=== PATIENT | female | born 1965 | race Two or more races ===

== ENCOUNTER 2025-09-30 11:18 | Emergency (ER) | payer MEDICAID, SELFPAY ==
[2025-09-30 12:08] VITALS: BP 155/88; PULSE 63; RESP 19; TEMP 36.7; O2SAT 99; BMI 24.0
--- NOTE | 2025-09-30 12:14 | PD.EDRME ---
Rapid Medical Screening Exam E Arrival date/time: 09/30/25 11:18 This is a 60-year-old female that comes into the emergency room with complaints of right flank pain that started yesterday. Patient states she has had this pain before in the past. Patient was told she had kidney stones in the past as well but has never had this bout of pain. Patient denies any nausea vomiting I have greeted and performed a focused initial assessment of this patient. Initial appropriate labs ordered at this time. A comprehensive ED assessment and evaluation of the patient and analysis of all test and completion of medical decision making process will be conducted by additional ED provider. Chief Complaint: Back Pain/Injury Time Seen by Provider: 09/30/25 11:24 Vital signs: Vital Signs Temperature 98.0 F 09/30/25 12:08 Pulse Rate 63 09/30/25 12:08 Respiratory Rate 19 09/30/25 12:08 Blood Pressure 155/88 H 09/30/25 12:08 Pulse Oximetry (%) 99 09/30/25 12:08 Oxygen Delivery Method Room Air 09/30/25 12:08 Exam: Alert and oriented, breathing even and unlabored, skin warm and dry Clinical Impression: Right flank pain
[2025-09-30 12:40] LABS: Collection Type, Urine Voided
[2025-09-30 12:47] LABS: HCG Qualitative,Urine Negative
[2025-09-30 12:49] LABS: Bacteria,Urine Rare; Bilirubin,Urine Negative (Negative); Blood,Urine 2+ (Negative); Clarity,Urine Clear (Clear/Hazy); Color,Urine Lt-Yellow (Lt Yel-Yel); Culture Indicated,Urine Not Indicated; Glucose, Urine Trace (Negative); Ketones,Urine Negative (Negative); Leukocyte Esterase,Urine Positive (Negative); Nitrite,Urine Negative (Negative); PH,Urine 6.5 (5.0-7.0); Protein,Urine Negative (Neg - Trace); RBC,Urine 14 /hpf (0-3); Specific Gravity,Urine 1.021 (1.001-1.035); Squamous Epithelial Cell,Urine 1 /hpf (0-5); Urobilinogen,Urine Negative mg/dL (0.0-1.0); WBC,Urine 2 /hpf (0-5)
[2025-09-30 12:57] LABS: Basophils # (Auto) 0.0 Thou/mm3 (0.0-0.2); Basophils % (Auto) 0 % (0-2.5); Eosinophils # (Auto) 0.0 Thou/mm3 (0.0-0.5); Eosinophils % (Auto) 0 % (0-10); Hematocrit 40.2 % (36.0-46.0); Hemoglobin 13.9 g/dL (12.0-16.0); Immature Granulocytes Auto 0.02 Thou/mm3 (0.00-0.00); Lymphocytes # (Auto) 2.2 Thou/mm3 (1.0-4.8); Lymphocytes % (Auto) 28 % (10-50); Mean Corpuscular HGB Conc 34.6 g/dl (31.0-37.0); Mean Corpuscular Hemoglobin 32.8 pg (25.0-35.0); Mean Corpuscular Volume 95 fL (80-100); Monocytes # (Auto) 0.4 Thou/mm3 (0.0-0.8); Monocytes % (Auto) 5 % (0-12); Neutrophils # (Auto) 5.2 Thou/mm3 (1.8-7.7); Neutrophils % (Auto) 66 % (37-80); Nucleated Red Blood Cell # 0.00 Thou/mm3 (0.00-0.00); Nucleated Red Blood Cell % 0 /100 WBC (0); Platelet Count 243 Thou/mm3 (140-440); RDW Standard Deviation 44.7 fL (36.4-46.3); Red Blood Count 4.24 Miln/mm3 (4.00-5.20); White Blood Count 7.8 Thou/mm3 (3.6-11.0)
[2025-09-30 13:15] LABS: Alanine Aminotransferase 12 U/L (10-49); Albumin, Serum 4.8 gm/dL (3.4-4.8); Albumin/Globulin Ratio 1.7 (1.2-2.2); Alkaline Phosphatase 70 U/L (46-116); Anion Gap 10 (7-16); Aspartate Amino Transferase 22 U/L (0-34); BUN/Creatinine Ratio 13 Ratio (12-20); Bilirubin,Total 0.6 mg/dL (0.3-1.2); Blood Urea Nitrogen 10 mg/dL (9-23); Calcium 9.5 mg/dL (8.3-10.6); Calcium (Corrected) 9.5 mg/dL (8.5-10.1); Carbon Dioxide 27.6 mMol/L (20.0-31.0); Chloride 104 mMol/L (98-107); Creatinine (Component) 0.8 mg/dL (0.6-1.3); Estimated Creatinine Clearance 59.5 mL/min (>60); Globulin 2.9 gm/dL (2.3-3.5); Glucose 116 mg/dL (74-106); Lipase 29 U/L (12-53); Osmolality,Calculated 283 (275-295); Potassium 4.0 mMol/L (3.4-5.1); Sodium 142 mMol/L (136-145); Total Protein 7.7 gm/dL (5.7-8.2); eGFR > 60 See Note
--- NOTE | 2025-09-30 13:16 | XR_ITS ---
Examination: CT abdomen and pelvis without contrast. Coronal 3-D reconstructions. Sagittal 2-D reconstructions. Date and time of exam: September 30, 2025, 1338 hours, comparison August 21, 2020 INDICATIONS: Right-sided flank pain with painful urination 3 days CTDI: vol (mGy): 6.16 DLP: (mGycm): 274 Technique: Axial images of the abdomen have been obtained, 3 mm slice thickness Intravenous contrast material has not been administered. Low dose protocols were performed. One or more of the following dose reduction techniques were used; automated exposure control, adjustment of the mA and/or KV according to patient size, use of iterative reconstruction technique. Findings: No visualized liver or splenic lesion Absent gallbladder No pancreatic or adrenal mass 4 mm left renal calculus No hydronephrosis or ureteral calculi Aortic calcification no aneurysmal dilatation 15 mm fat-containing umbilical hernia Normal appendix No bowel obstruction Atrophic anteverted uterus No bladder mass or bladder calculi Moderate osteopenia IMPRESSION: 4 mm nonobstructing left renal calculus, no hydronephrosis or ureteral calculi Normal appendix Small fat-containing umbilical hernia No bladder mass or bladder calculi
--- NOTE | 2025-09-30 17:33 | PD.EDBACK ---
ED Back Injury Pain RME/HPI General Chief Complaint: Back Pain/Injury Stated Complaint: LOWER BACK PAIN X 3 DAYS Time Seen by Provider: 09/30/25 11:24 Arrival date/time: 09/30/25 11:18 RME / HPI RME / HPI Narrative: 09/30/25 11:18 This is a 60-year-old female that comes into the emergency room with complaints of right flank pain that started yesterday. Patient states she has had this pain before in the past. Patient was told she had kidney stones in the past as well but has never had this bout of pain. Patient denies any nausea vomiting I have greeted and performed a focused initial assessment of this patient. Initial appropriate labs ordered at this time. A comprehensive ED assessment and evaluation of the patient and analysis of all test and completion of medical decision making process will be conducted by additional ED provider. ED MAIN EVALUATION - DR. SCHERER, [id number] 60-year-old female coming in for evaluation of right flank pain that onset about 2 days ago that was mild initially but was worse today. [place] nausea with pain. Denies any vomiting, diarrhea, urinary symptoms, fever, or other acute symptoms at this time. Denies any past medical history. Takes no medications usually. Related Data Previous Rx's ?Medication ?Instructions ?Recorded ondansetron HCl 4 mg tablet 4 mg PO Q8H PRN nausea and 08/21/20 (Zofran) vomiting #30 tabs Allergies Allergy/AdvReac Type Severity Reaction Status Date / Time No Known Allergies Allergy Verified 09/30/25 11:21 Review of Systems Review of Systems Systems Reviewed: All systems reviewed, normal except as documented Past Medical History Past Medical History Comments PMH COMMENT: None ED Exam Narrative Physical exam: Constitutional: Awake, alert, nontoxic, no acute distress HEENT: Normocephalic, atraumatic, extraocular movements intact. CV: Regular rate and rhythm, no murmurs/rubs/gallops Lungs: Clear to auscultation BL, no respiratory distress. Abd: Soft, NT, ND, no rebound or guarding noted at this time. Extremities: There is no significant pain to palpation of the right flank. Neuro: AAOx3, no acute neuro deficit noted. Skin: Warm, dry, intact Course Quality Measures none Orders Category Date Time Status CT abdomen pelvis wo con Stat Exams 09/30/25 13:16 Completed CBC Stat Lab 09/30/25 12:34 Completed Comprehensive Metabolic Panel Stat Lab 09/30/25 12:34 Completed HCG Qualitative,Urine Stat Lab 09/30/25 12:26 Completed Lipase Stat Lab 09/30/25 12:34 Completed Urinalysis, C/S if Indicated Stat Lab 09/30/25 12:26 Completed Ketorolac Inj [Toradol Inj] Med 09/30/25 17:32 Once 60 mg IM X1 ONE Vital Signs Vital signs: Vital Signs Temperature 98.0 F 09/30/25 12:08 Pulse Rate 63 09/30/25 12:08 Respiratory Rate 19 09/30/25 12:08 Blood Pressure 155/88 H 09/30/25 12:08 Pulse Oximetry (%) 99 09/30/25 12:08 Oxygen Delivery Method Room Air 09/30/25 12:08 Back Pain / Injury MDM Narrative MDM Narrative:: 60-year-old female coming in for evaluation of right flank pain that onset 2 days ago with nausea that worsened today and currently is much improved compared with initial presentation to the emergency department. Labs were generally unremarkable, urinalysis with small amount of hematuria 14 WBCs but otherwise unremarkable. CT showed a left renal calculus but no ureterolithiasis noted. Patient is generally well-appearing. As pain is improved, will give 1 dose of Toradol and advised on symptomatic treatment for home at this time. Stable for discharge to follow-up with PCP. Patient data External records reviewed:: [facility] previous records Clinical information provided by:: patient Social determinants that could affect healthcare access:: none Patient has the following chronic illnesses:: None How is presenting disease/condition affected by chronic disease/condition?: no chronic disease Evaluation data The following diagnostics were reviewed and interpreted by me:: lab results and radiology exam(s) Lab and/or radiology exams considered but not ordered:: None Interpretation Summary: As above Medications / Prescriptions Medications or Prescriptions considered but not ordered:: None Medication administrations:: Medication Administration History Ketorolac Tromethamine (Ketorolac Inj 60 Mg/2 Ml Vial) 60 mg IM X1 ONE Stop: 09/30/25 17:33 . Consultations Consultation(s) initiated? (list below): No Diagnosis Differential diagnosis back pain/injury: lumbar radiculopathy, strain of lumbar region, renal colic, pyelonephritis and AAA Most likely diagnosis given after review of the tests above:: Right flank pain, hematuria, nephrolithiasis Admission Indicated Admission indicated?: not indicated Admission Request Was there a request for admission?: No Disposition Plan Disposition Plan: Discharge Discharge Attestation Discharge Attestation: The patient and all family members were given an opportunity to ask questions and understood the discharge instructions. Discharge instructions specifically effects, indications for sooner follow up or return to the emergency department, and the expected course of current diagnosis. Patient condition: Stable Discharge Plan Plan Patient Disposition: HOME (Self Care) Patient condition on transfer: Stable Prescriptions/Referrals Prescriptions/Med Rec: No Action ondansetron HCl [Zofran] 4 mg tablet 4 mg PO Q8H PRN (Reason: nausea and vomiting) Qty: 30 0RF Referrals: Migue Silva MD [Primary Care Provider, [facility]] - In 1 week Problem List Clinical Impression: Flank pain, right side, Hematuria Patient/Caregiver Discharge Instructions Education Materials: ED Hematuria, ED Pain, Acute, Uncertain Cause Additional Instructions: Algunos principios generales de dameon que pueden ayudarte son los principios de ADELANTE: Agua: (beber suficiente agua fresca para mantenerse hidratado, priorizando el agua en lugar de refrescos, caf?, t?, jugos, etc.). [place] (descansar adecuadamente por la noche, acostarse unas horas antes de la medianoche y evitar las pantallas, la televisi?n y la m?nir mary hugh antes de acostarse, as? blake las comidas pesadas hugh antes de acostarse). Ejercicio: (ejercicio/caminatas diarias seg?n la tolerancia). Kimberly solar: (exponer la piel al william josé miguel 15-20 minutos aproximadamente, temprano por la ma?abi y al atardecer, para obtener los beneficios de la vitamina D). Aire (ejercicios de respiraci?n profunda temprano por la ma?abi al aire juan). Nutricion: (consumir niya dieta a base de plantas, evitar las josue en general y los alimentos altamente procesados). Templanza (evitar el alcohol, las drogas il?citas, las bebidas con cafe?na, fumar, etc.). [place] en [place] (dedicar tiempo diariamente al estudio b?blico y la oraci?n: la contemplaci?n tiene beneficios para la dameon). Recursos adicionales que pueden ser ?tiles: [email or web address], consulte la secci?n de recursos y seminarios. Print Language: Zambian Stand Alone Forms: Rody Award Info., Patient Portal Info Letter
[2025-09-30] MEDS: KETOROLAC INJ 60 MG/2 ML VIAL IM (18:07)
[2025-09-30 18:50] VITALS: BP 150/94; PULSE 74; RESP 19; TEMP 36.8; O2SAT 98
== END 2025-09-30 18:51 | disposition home or self-care (01) ==
PROVIDERS: Nurse Practitioner Family; Emergency Provider Family Medicine; PCP Family Medicine
DX: N20.0 Calculus of kidney (principal)
CPT/HCPCS: 36415; 74176; 80053; 81001; 81025; 83690; 85025; 96372; 99283; J1885

== ENCOUNTER 2025-10-01 12:53 | Emergency (ER) | payer MEDICAID, SELFPAY ==
[2025-10-01 13:13] VITALS: BP 156/79; PULSE 64; RESP 18; TEMP 36.7; O2SAT 98
--- NOTE | 2025-10-01 14:03 | EDNOTE_ITS ---
ED Abdominal Pain RME/HPI General Chief Complaint: Abdominal Pain Stated complaint: Right side abdominal pain, vomited yesterday Time seen by provider: 10/01/25 13:00 Arrival date/time: 10/01/25 12:53 61-year-old female patient came in for evaluation regarding right sided lower abdominal pain. Onset of symptoms since yesterday, associated with vomiting yesterday. This morning patient woke up with still having right lower abdominal pain, patient took Tylenol with significant improvement of pain. Patient is denying any fever denies any other complaints. Related Data Previous Rx's ?Medication ?Instructions ?Recorded ondansetron HCl 4 mg tablet 4 mg PO Q8H PRN nausea and 08/21/20 (Zofran) vomiting #30 tabs acetaminophen 300 mg-codeine 30 mg 1 tab PO Q8H PRN pa in #20 tabs 10/01/25 tablet Allergies Allergy/AdvReac Type Severity Reaction Status Date / Time No Known Allergies Allergy Verified 10/01/25 12:59 Review of Systems Review of Systems Narrative Review of Systems: Review of system reviewed and within normal limits except mentioned in HPI ED Exam Narrative Physical exam: VITAL SIGNS: Reviewed. GENERAL APPEARANCE: Alert and interactive, follows commands, no acute distress, HEAD AND FACE: Non-traumatic. ENT: PERRL, pink conjunctivitis, eyelid no trauma, Mucous membrane moist. NECK: Supple, nontender, no nuchal rigidity. CHEST: No tenderness, no crepitus, no paradoxical movement, no retractions. LUNGS: Clear, well ventilated, symmetric, no rales, no wheezing, no ronchi, no stridor, good breath sounds bilaterally. HEART: Regular rate, regular rhythm, no murmur, no gallops. ABDOMEN: Soft, positive bowel sounds, nondistended, no guarding, right lower more on the pelvic area tenderness, no tenderness at the McBurney's area, no rebound, no masses, RECTAL: Deferred. GENITAL: Deferred. NEUROLOGICAL: Gross motor function intact sensory function intact, Appropriate for age. MUSCULOSKELETAL: low back nontender, full range of motion. EXTREMITIES: Nontender, full range of motion. SKIN: Color pink, dry, no rash, no lacerations, no abrasions, no contusions. LYMPHATICS: Deferred. Course Quality Measures none Orders Category Date Time Status ACETAMINOPHEN w/COD 300-30 [Tylenol w/Cod #3] Med 10/01/25 14:03 Once 1 tab PO X1 ONE Vital Signs Vital signs: Vital Signs Temperature 98.1 F 10/01/25 13:13 Pulse Rate 64 10/01/25 13:13 Respiratory Rate 18 10/01/25 13:13 Blood Pressure 156/79 H 10/01/25 13:13 Pulse Oximetry (%) 98 10/01/25 13:13 Oxygen Delivery Method Room Air 10/01/25 13:13 Abdominal Pain MDM MDM Narrative MDM Narrative:: 61-year-old female patient came in for evaluation regarding right sided lower abdominal pain. Onset of symptoms since yesterday, associated with vomiting yesterday. This morning patient woke up with still having right lower abdominal pain, patient took Tylenol with significant improvement of pain. Patient is denying any fever denies any other complaints. I reviewed patient's laboratory workup including CT scan of the abdomen pelvis that was done yesterday and all came back benign except for a 4 mm left-sided kidney stone. Patient is asking if I can explain the results to her that was done yesterday. Patient does not want any repeat CT scan or laboratory workup. She is asking also for Tylenol with codeine. Patient stable for discharge home. I told her to come back to the emergency room for worsening of pain patient and family agrees with the plan. Patient data External records reviewed:: None Clinical information provided by:: patient Social determinants that could affect healthcare access:: none Patient has the following chronic illnesses:: None How is presenting disease/condition affected by chronic disease/condition?: no chronic disease Evaluation data The following diagnostics were reviewed and interpreted by me:: lab results and radiology exam(s) Lab and/or radiology exams considered but not ordered:: None Interpretation Summary: None Medications / Prescriptions Medications or Prescriptions considered but not ordered:: None Medication administrations:: None Consultations Consultation(s) initiated? (list below): No Diagnosis Differential diagnosis abdominal pain: abdominal pain, calculus of kidney and constipation Most likely diagnosis given after review of the tests above:: Right abdominal pain. Admission Indicated Admission indicated?: not indicated Admission Request Was there a request for admission?: No Disposition Plan Disposition Plan: Discharge Discharge Attestation Discharge Attestation: The patient and all family members were given an opportunity to ask questions and understood the discharge instructions. Discharge instructions specifically effects, indications for sooner follow up or return to the emergency department, and the expected course of current diagnosis. Patient condition: Stable Discharge Plan Plan Patient Disposition: HOME (Self Care) Discharge Disposition comment: None Prescriptions/Referrals Prescriptions/Med Rec: New acetaminophen-codeine 300-30 mg tablet 1 tab PO Q8H PRN (Reason: pain) Qty: 20 0RF No Action ondansetron HCl [Zofran] 4 mg tablet 4 mg PO Q8H PRN (Reason: nausea and vomiting) Qty: 30 0RF Problem List Clinical Impression: Abdominal pain Patient/Caregiver Discharge Instructions Discharge Activity: activity as tolerated Education Materials: Abdominal Pain Additional Instructions: Thank you for the opportunity for serving you today. You are stable for discharged . You are advised to: Follow-up with your PCP in 1 to 2 days Return to ED for worsening of symptoms Increase oral fluids Take medication as prescribed Print Language: Romansh Stand Alone Forms: Rody Award Info., Patient Portal Info Letter
== END 2025-10-01 14:54 | disposition home or self-care (01) ==
LOC: SERX 15:29
PROVIDERS: Emergency Provider Emergency Medicine
DX: R10.31 Right lower quadrant pain (principal)
CPT/HCPCS: 99281